=== PATIENT | male | born 1965 | race Caucasian/White ===

== ENCOUNTER 2017-03-26 14:11 | Observation (INO) | payer OTHER ==
[2017-03-26] VITALS (38 sets, daily range): BP systolic 171; BP diastolic 110; PULSE 93; TEMP 97.1; O2SAT 91–98
[~2017-03-26] VITALS: Ht 193 cm; Wt 95.8 kg
[~2017-03-26 14:11] MED LIST: AMITRIPTYLINE H25 M1 PO; BLOOD PRESSURE MED; CELEXA 20MG20 MG/TAB PO; DILANTIN 100MG100 MG PO; FOLIC ACID 11 MG/TA1 PO; LIBRIUM 25M25 MG/CAP PO; LIBRIUM 5MG5 MG/CAP PO; NKDA; NO HOME MEDICATIONS; NORCO 325 MG-51 TAB PO; NORVASC 10MG10 MG PO; PROZAC40 MG PO; TENORMIN 5050 MG/TAB PO; THIAMINE 1100 MG/TAB PO; TOPROL XL 50MG50 MG PO; VALIUM 5MG T5 MG/TAB PO
[2017-03-26] MEDS ORDERED: VALIUM 5MG T5 MG/TAB PO (14:36)
[2017-03-26] MEDS ORDERED: LITHIUM CA150 MG/CAP PO (14:36)
[2017-03-26 15:25] LABS: BASO % 0.9 % (0.0-2.0); EOS # 0.1 (0.0-0.7); EOS % 1.8 % (0-4.0); GRAN # 2.2 (1.4-6.5); HEMATOCRIT 48.8 % (42.0-52.0); HEMOGLOBIN 17.7 g/dl (13.5-18.0); LYMPH # 1.4 (1.2-3.4); LYMPH % 32.2 % (20.0-51.0); MEAN CELL VOLUME 90 fl (80.0-100.0); MEAN CORPUSCULAR HEMOGLOBIN 33 pg (27.0-31.0); MEAN CORPUSCULAR HGB CONC 36 g/dl (33.0-37.0); MEAN PLATELET VOLUME 10.1 fl (7.4-10.4); MONO # 0.7 (0.1-0.6); MONO % 14.9 % (1.7-9.3); PLATELET COUNT 101 K/mm3 (130-400); RED BLOOD COUNT 5.44 M/mm3 (4.20-5.60); REDCELL DISTRIBUTION WIDTH-CV 13.1 % (11.5-14.5); WHITE BLOOD COUNT 4.4 K/mm3 (4.8-10.8)
[2017-03-26 15:34] LABS: ACETAMINOPHEN < 10 ug/mL (10-30); ADJUSTED CALCIUM 8.4 mg/dL (8.4-10.2); ALANINE AMINOTRANSFERASE 137 U/L (21-72); ALBUMIN 5.1 gm/dL (3.5-5.0); ALKALINE PHOSPHATASE 101 U/L (50-136); ANION GAP 20 mmol/L (7-16); BILIRUBIN,TOTAL 1.5 mg/dL (0.0-1.0); BLOOD UREA NITROGEN 6 mg/dL (9-20); CALCIUM 9.3 mg/dL (8.4-10.2); CARBON DIOXIDE 23 mmol/L (22-30); CHLORIDE 101 mmol/L (98-107); CREATININE, serum 0.97 mg/dL (0.66-1.25); GLUCOSE 98 mg/dL (74-106); POTASSIUM 3.6 mmol/L (3.4-5.0); SALICYLATE < 1.0 mg/dL; SODIUM 144 mmol/L (137-145); TOTAL PROTEIN 9.4 gm/dL (6.4-8.2)
[2017-03-26 15:43] LABS: AMPHETAMINE URINE NEGATIVE; BARBITURATES URINE NEGATIVE; BENZODIAZEPINES URINE POSITIVE; BUPRENORPHINE URINE NEGATIVE; METHADONE URINE NEGATIVE; OPIATES URINE NEGATIVE; OXYCODONE URINE NEGATIVE; PHENCYCLIDINE URINE NEGATIVE; PROPOXYPHENE URINE NEGATIVE; THC CANNABINOIDS URINE NEGATIVE
[2017-03-26 16:55] LABS: LITHIUM < 0.2 mmol/L (0.6-1.2)
[2017-03-26 20:51] LABS: MAGNESIUM 2.3 mg/dL (1.6-2.3)
[2017-03-27] VITALS (608 sets, daily range): BP systolic 152–180; BP diastolic 104–120; PULSE 74–92; TEMP 96.9–98; O2SAT 88–99
[2017-03-28] VITALS (688 sets, daily range): BP systolic 159–1257; BP diastolic 99–117; PULSE 65–89; TEMP 97–98.1; O2SAT 67–98
[2017-03-28 05:56] LABS: HEMATOCRIT 39.3 % (42.0-52.0); MEAN CELL VOLUME 91 fl (80.0-100.0); MEAN CORPUSCULAR HEMOGLOBIN 33 pg (27.0-31.0); MEAN CORPUSCULAR HGB CONC 36 g/dl (33.0-37.0); PLATELET COUNT 56 K/mm3 (130-400); RED BLOOD COUNT 4.31 M/mm3 (4.20-5.60); REDCELL DISTRIBUTION WIDTH-CV 12.8 % (11.5-14.5)
[2017-03-28 05:59] LABS: HEMOGLOBIN 14.1 g/dl (13.5-18.0)
[2017-03-28 06:11] LABS: ADJUSTED CALCIUM 9.2 mg/dL (8.4-10.2); ALBUMIN 3.3 gm/dL (3.5-5.0); BILIRUBIN,TOTAL 1.2 mg/dL (0.0-1.0); CALCIUM 8.6 mg/dL (8.4-10.2); CREATININE, serum 0.86 mg/dL (0.66-1.25); POTASSIUM 3.3 mmol/L (3.4-5.0); TOTAL PROTEIN 6.3 gm/dL (6.4-8.2)
[2017-03-29] VITALS (7 sets, daily range): BP systolic 121–189; BP diastolic 78–139; PULSE 83–111; TEMP 97–98.7
[2017-03-29 06:19] LABS: ADJUSTED CALCIUM 9.4 mg/dL (8.4-10.2); ALBUMIN 3.5 gm/dL (3.5-5.0); BILIRUBIN,TOTAL 0.9 mg/dL (0.0-1.0); CREATININE, serum 0.73 mg/dL (0.66-1.25); POTASSIUM 3.2 mmol/L (3.4-5.0); TOTAL PROTEIN 6.7 gm/dL (6.4-8.2)
[2017-03-30] VITALS: BP 180/113; PULSE 86; TEMP 98
[2017-03-30 04:00] VITALS: BP 153/111; PULSE 89; TEMP 98.4
[2017-03-30 05:25] LABS: BASO % 0.7 % (0.0-2.0); EOS # 0.1 (0.0-0.7); GRAN # 2.6 (1.4-6.5); GRAN % 59.2 % (42.2-75.2); HEMOGLOBIN 15.4 g/dl (13.5-18.0); LYMPH % 23.3 % (20.0-51.0); MEAN CELL VOLUME 91 fl (80.0-100.0); MEAN CORPUSCULAR HEMOGLOBIN 33 pg (27.0-31.0); MEAN CORPUSCULAR HGB CONC 36 g/dl (33.0-37.0); MEAN PLATELET VOLUME 10.3 fl (7.4-10.4); MONO # 0.6 (0.1-0.6); MONO % 13.7 % (1.7-9.3); PLATELET COUNT 72 K/mm3 (130-400); RED BLOOD COUNT 4.72 M/mm3 (4.20-5.60); REDCELL DISTRIBUTION WIDTH-CV 13.1 % (11.5-14.5); WHITE BLOOD COUNT 4.5 K/mm3 (4.8-10.8)
[2017-03-30 05:39] LABS: CALCIUM 8.6 mg/dL (8.4-10.2); CREATININE, serum 0.71 mg/dL (0.66-1.25); POTASSIUM 3.2 mmol/L (3.4-5.0)
[2017-03-30 06:30] VITALS: BP 150/105
[2017-03-30 16:00] VITALS: BP 152/108; PULSE 89; TEMP 97.9
[2017-03-30 20:00] VITALS: BP 150/105; PULSE 88; TEMP 98.4
[2017-03-31] VITALS: BP 150/90; PULSE 82; TEMP 97.7
[2017-03-31 04:00] VITALS: BP 158/109; PULSE 88; TEMP 98.1
[2017-03-31 05:58] LABS: BASO % 0.8 % (0.0-2.0); EOS # 0.1 (0.0-0.7); EOS % 2.8 % (0-4.0); GRAN # 2.7 (1.4-6.5); GRAN % 53.5 % (42.2-75.2); HEMATOCRIT 43.3 % (42.0-52.0); HEMOGLOBIN 15.4 g/dl (13.5-18.0); LYMPH # 1.3 (1.2-3.4); LYMPH % 25.8 % (20.0-51.0); MEAN CELL VOLUME 92 fl (80.0-100.0); MEAN CORPUSCULAR HEMOGLOBIN 33 pg (27.0-31.0); MEAN CORPUSCULAR HGB CONC 36 g/dl (33.0-37.0); MEAN PLATELET VOLUME 11.2 fl (7.4-10.4); MONO # 0.8 (0.1-0.6); MONO % 15.9 % (1.7-9.3); PLATELET COUNT 90 K/mm3 (130-400); RED BLOOD COUNT 4.69 M/mm3 (4.20-5.60); REDCELL DISTRIBUTION WIDTH-CV 13.4 % (11.5-14.5)
[2017-03-31 07:12] LABS: CALCIUM 8.9 mg/dL (8.4-10.2); CREATININE, serum 0.8 mg/dL (0.66-1.25); POTASSIUM 3.4 mmol/L (3.4-5.0)
[2017-03-31 08:00] VITALS: BP 163/101; PULSE 85; TEMP 97
[2017-03-31] MEDS ORDERED: NEURONTIN400 MG/CAP PO (13:27)
[2017-03-31] MEDS ORDERED: LOPRESSOR 550 MG/TAB PO (13:27)
[2017-03-31] MEDS ORDERED: MULTIPLE VITAMI1 CAP PO (14:48)
[2017-03-31] MEDS ORDERED: THIAMINE 1100 MG/TAB PO (14:48)
== END 2017-03-31 13:55 | disposition home or self-care (01) ==
LOC: COL.ER 14:11 → ICU 20:49
PROVIDERS: Emergency Medicine; Family Medicine
DX: F10.239 Alcohol dependence with withdrawal, unspecified (principal); F10.229 Alcohol dependence with intoxication, unspecified; F19.129 Other psychoactive substance abuse with intoxication, unspecified; Y90.8 Blood alcohol level of 240 mg/100 ml or more; F17.210 Nicotine dependence, cigarettes, uncomplicated; R45.851 Suicidal ideations; R45.850 Homicidal ideations; F31.9 Bipolar disorder, unspecified; I10 Essential (primary) hypertension; B19.20 Unspecified viral hepatitis C without hepatic coma; D69.6 Thrombocytopenia, unspecified; R74.0 Nonspecific elevation of levels of transaminase and lactic acid dehydrogenase [LDH]; Z91.14 Patient's other noncompliance with medication regimen; R00.0 Tachycardia, unspecified
CPT/HCPCS: 90791-AI; 99222-AI; 99232-AI; 99233-AI; 99239; G0378; J0360; J1652; J2060; J2405; J3411; J7030

== ENCOUNTER 2017-06-14 14:06 | Emergency (ER) | payer SELFPAY ==
[~2017-06-14 14:06] MED LIST changes: +LITHIUM CA150 MG/CAP PO; +LOPRESSOR 550 MG/TAB PO; +MULTIPLE VITAMI1 CAP PO; +NEURONTIN400 MG/CAP PO
[2017-06-14 14:18] VITALS: BP 201/113; PULSE 141
== END 2017-06-14 14:52 | disposition left against medical advice (07) ==
LOC: COL.ER 14:06
DX: F99 Mental disorder, not otherwise specified (principal); Z53.21 Procedure and treatment not carried out due to patient leaving prior to being seen by health care provider

== ENCOUNTER 2017-06-16 03:57 | Inpatient (IN) | payer OTHER ==
[~2017-06-16] VITALS: Ht 193 cm; Wt 92.6 kg
[2017-06-16 04:31] LABS: BASO % 0.3 % (0.0-2.0); GRAN # 7.9 (1.4-6.5); GRAN % 85.2 % (42.2-75.2); HEMATOCRIT 50.5 % (42.0-52.0); LYMPH # 0.7 (1.2-3.4); LYMPH % 7.4 % (20.0-51.0); MEAN CELL VOLUME 90 fl (80.0-100.0); MEAN CORPUSCULAR HEMOGLOBIN 33 pg (27.0-31.0); MEAN CORPUSCULAR HGB CONC 36 g/dl (33.0-37.0); MEAN PLATELET VOLUME 9.6 fl (7.4-10.4); MONO # 0.6 (0.1-0.6); MONO % 6.7 % (1.7-9.3); PLATELET COUNT 138 K/mm3 (130-400); RED BLOOD COUNT 5.61 M/mm3 (4.20-5.60); REDCELL DISTRIBUTION WIDTH-CV 12.8 % (11.5-14.5); WHITE BLOOD COUNT 9.2 K/mm3 (4.8-10.8)
[2017-06-16 04:34] LABS: HEMOGLOBIN 18.3 g/dl (13.5-18.0)
[2017-06-16 04:38] LABS: PROTHROMBIN TIME 11.1 SECONDS (9.7-12.8)
[2017-06-16 04:42] LABS: ADJUSTED CALCIUM 8.7 mg/dL (8.4-10.2); ALBUMIN 4.8 gm/dL (3.5-5.0); BILIRUBIN,TOTAL 1.2 mg/dL (0.0-1.0); CALCIUM 9.3 mg/dL (8.4-10.2); CREATININE, serum 1.03 mg/dL (0.66-1.25); TOTAL PROTEIN 8.7 gm/dL (6.4-8.2)
[2017-06-16 05:02] LABS: ALLEN TEST YES; ALLENS TEST RESULT PASS; ARTERIAL BLD GAS O2 SATURATION 96.3 % (92-100); ARTERIAL BLD GAS TCO2 CT 19.5; ARTERIAL BLOOD GAS HCO3 18.7 meq/L (22-26); ARTERIAL BLOOD GAS PO2 82.5 mmHg (80-100); ARTERIAL BLOOD GAS PO2T 82.5 (80-100); ATS? YES; OXYHEMOGLOBIN 95.4 %
[2017-06-16 07:56] LABS: CALCIUM 9.3 mg/dL (8.4-10.2); CREATININE, serum 1.02 mg/dL (0.66-1.25); POTASSIUM 3.1 mmol/L (3.4-5.0)
[2017-06-16 17:03] LABS: PH 9 (5-8); SQUAMOUS EPITHELIAL 0-2 /hpf; URINE APPEARANCE Clear; URINE BACTERIA None Seen /hpf; URINE BILIRUBIN Negative (NEGATIVE); URINE BLOOD Negative (NEGATIVE); URINE COLOR Yellow; URINE GLUCOSE Negative (NEGATIVE); URINE KETONE Trace (NEGATIVE); URINE RBC 0-2 /hpf; URINE UROBILINOGEN Negative (NEGATIVE); URINE WBC 0-2 /hpf
[2017-06-16 17:16] LABS: AMPHETAMINE URINE NEGATIVE; BARBITURATES URINE POSITIVE; BENZODIAZEPINES URINE POSITIVE; BUPRENORPHINE URINE NEGATIVE; METHADONE URINE NEGATIVE; OPIATES URINE NEGATIVE; OXYCODONE URINE NEGATIVE; PHENCYCLIDINE URINE NEGATIVE; PROPOXYPHENE URINE NEGATIVE; THC CANNABINOIDS URINE NEGATIVE
[2017-06-16 17:17] LABS: CALCIUM 8.8 mg/dL (8.4-10.2); CREATININE, serum 1.03 mg/dL (0.66-1.25); POTASSIUM 3.6 mmol/L (3.4-5.0)
[2017-06-16 17:59] VITALS: BP 140/101; PULSE 101; TEMP 97.8
[2017-06-16 18:22] VITALS: BP 140/110; PULSE 110; TEMP 98.1
[2017-06-16 19:20] VITALS: BP 146/90; PULSE 101; TEMP 98.5
[2017-06-16 22:40] VITALS: BP 154/96; PULSE 111; TEMP 98.7
[2017-06-17] VITALS (10 sets, daily range): BP systolic 149–178; BP diastolic 94–115; PULSE 90–104; TEMP 97.9–9834
[2017-06-17 07:36] LABS: BASO % 0.5 % (0.0-2.0); EOS % 0.2 % (0-4.0); GRAN # 4.3 (1.4-6.5); GRAN % 64.5 % (42.2-75.2); HEMATOCRIT 47.9 % (42.0-52.0); HEMOGLOBIN 16.8 g/dl (13.5-18.0); LYMPH # 1.5 (1.2-3.4); LYMPH % 22.4 % (20.0-51.0); MEAN CELL VOLUME 92 fl (80.0-100.0); MEAN CORPUSCULAR HEMOGLOBIN 32 pg (27.0-31.0); MEAN CORPUSCULAR HGB CONC 35 g/dl (33.0-37.0); MEAN PLATELET VOLUME 10.3 fl (7.4-10.4); MONO # 0.8 (0.1-0.6); MONO % 12.1 % (1.7-9.3); PLATELET COUNT 86 K/mm3 (130-400); RED BLOOD COUNT 5.19 M/mm3 (4.20-5.60); REDCELL DISTRIBUTION WIDTH-CV 12.7 % (11.5-14.5); WHITE BLOOD COUNT 6.6 K/mm3 (4.8-10.8)
[2017-06-17 07:49] LABS: ADJUSTED CALCIUM 9.1 mg/dL (8.4-10.2); ALBUMIN 3.8 gm/dL (3.5-5.0); BILIRUBIN,TOTAL 2.2 mg/dL (0.0-1.0); CALCIUM 8.9 mg/dL (8.4-10.2); MAGNESIUM 2.1 mg/dL (1.6-2.3); POTASSIUM 3.2 mmol/L (3.4-5.0); TOTAL PROTEIN 7.3 gm/dL (6.4-8.2)
[2017-06-18 00:01] VITALS: BP 171/117; PULSE 94; TEMP 98.9
[2017-06-18 02:36] VITALS: BP 176/112; PULSE 85; TEMP 97.3
[2017-06-18 04:22] VITALS: BP 165/114; PULSE 89; TEMP 98.1
[2017-06-18 07:22] LABS: ADJUSTED CALCIUM 9.2 mg/dL (8.4-10.2); ALBUMIN 3.5 gm/dL (3.5-5.0); BILIRUBIN,TOTAL 1.7 mg/dL (0.0-1.0); CALCIUM 8.8 mg/dL (8.4-10.2); CREATININE, serum 0.91 mg/dL (0.66-1.25); POTASSIUM 3.4 mmol/L (3.4-5.0); TOTAL PROTEIN 6.9 gm/dL (6.4-8.2)
[2017-06-18 07:53] LABS: HEMATOCRIT 45.4 % (42.0-52.0); HEMOGLOBIN 16.3 g/dl (13.5-18.0)
[2017-06-18 08:06] VITALS: BP 151/93; PULSE 88; TEMP 98.2
[2017-06-18 12:09] VITALS: BP 167/118; PULSE 90; TEMP 97.8
== END 2017-06-18 13:35 | disposition left against medical advice (07) | DRG 378 ==
LOC: COL.ER 03:57 → MEDICAL 10:00 → EDBEDREQ 17:17 → MEDICAL 06-18 13:35
PROVIDERS: Emergency Medicine; Internal Medicine; Internal Medicine Gastroenterology
DX: K29.21 Alcoholic gastritis with bleeding (principal); F10.239 Alcohol dependence with withdrawal, unspecified; K20.9 Esophagitis, unspecified; K21.9 Gastro-esophageal reflux disease without esophagitis; E87.6 Hypokalemia; I10 Essential (primary) hypertension; E88.89 Other specified metabolic disorders; F31.9 Bipolar disorder, unspecified; B19.20 Unspecified viral hepatitis C without hepatic coma
CPT/HCPCS: 90791-AI; 99223-AI; 99233-AI; 99238; C9113; J2060; J2405; J2550; J3360; J3411; J3480; J7030; J7042; Q9967

== ENCOUNTER 2017-06-18 22:52 | Inpatient (IN) | payer OTHER ==
[~2017-06-18] VITALS: Ht 193 cm; Wt 90.7 kg
[2017-06-18 23:34] LABS: BASO % 0.3 % (0.0-2.0); EOS % 0.5 % (0-4.0); GRAN # 3.6 (1.4-6.5); GRAN % 60.2 % (42.2-75.2); HEMATOCRIT 47.1 % (42.0-52.0); LYMPH # 1.6 (1.2-3.4); MEAN CELL VOLUME 90 fl (80.0-100.0); MEAN CORPUSCULAR HEMOGLOBIN 33 pg (27.0-31.0); MEAN CORPUSCULAR HGB CONC 36 g/dl (33.0-37.0); MEAN PLATELET VOLUME 10.5 fl (7.4-10.4); MONO # 0.7 (0.1-0.6); MONO % 11.5 % (1.7-9.3); PLATELET COUNT 82 K/mm3 (130-400); RED BLOOD COUNT 5.22 M/mm3 (4.20-5.60); REDCELL DISTRIBUTION WIDTH-CV 12.3 % (11.5-14.5); WHITE BLOOD COUNT 5.9 K/mm3 (4.8-10.8)
[2017-06-18 23:47] LABS: ADJUSTED CALCIUM 9.2 mg/dL (8.4-10.2); ALANINE AMINOTRANSFERASE 114 U/L (21-72); ALBUMIN 4.4 gm/dL (3.5-5.0); ALKALINE PHOSPHATASE 73 U/L (50-136); ANION GAP 14 mmol/L (7-16); BILIRUBIN,TOTAL 1.2 mg/dL (0.0-1.0); BLOOD UREA NITROGEN 4 mg/dL (9-20); CALCIUM 9.5 mg/dL (8.4-10.2); CARBON DIOXIDE 17 mmol/L (22-30); CHLORIDE 110 mmol/L (98-107); CREATININE, serum 0.81 mg/dL (0.66-1.25); GLUCOSE 99 mg/dL (74-106); POTASSIUM 3.1 mmol/L (3.4-5.0); SODIUM 141 mmol/L (137-145); TOTAL PROTEIN 8.1 gm/dL (6.4-8.2)
[2017-06-18 23:49] LABS: ACETAMINOPHEN < 10 ug/mL (10-30); SALICYLATE < 1.0 mg/dL
[2017-06-19] VITALS (20 sets, daily range): BP systolic 127–168; BP diastolic 82–114; PULSE 76–102; TEMP 97.4–98.3; O2SAT 95–98
[2017-06-19 03:12] LABS: PH 5 (5-8); SQUAMOUS EPITHELIAL None Seen /hpf; URINE APPEARANCE Clear; URINE BACTERIA None Seen /hpf; URINE BILIRUBIN Negative (NEGATIVE); URINE BLOOD Negative (NEGATIVE); URINE COLOR Yellow; URINE GLUCOSE Negative (NEGATIVE); URINE KETONE Negative (NEGATIVE); URINE RBC 0-2 /hpf; URINE UROBILINOGEN Negative (NEGATIVE); URINE WBC 0-2 /hpf
[2017-06-19 03:19] LABS: MAGNESIUM 2.1 mg/dL (1.6-2.3)
[2017-06-19 03:22] LABS: AMPHETAMINE URINE NEGATIVE; BARBITURATES URINE NEGATIVE; BENZODIAZEPINES URINE POSITIVE; BUPRENORPHINE URINE NEGATIVE; METHADONE URINE NEGATIVE; OPIATES URINE NEGATIVE; OXYCODONE URINE NEGATIVE; PHENCYCLIDINE URINE NEGATIVE; PROPOXYPHENE URINE NEGATIVE; THC CANNABINOIDS URINE NEGATIVE
[2017-06-19 03:45] LABS: TROPONIN-I < 0.012 ng/mL (0.000-0.034)
[2017-06-19 06:11] LABS: ANION GAP 12 mmol/L (7-16); BLOOD UREA NITROGEN 5 mg/dL (9-20); CALCIUM 8.7 mg/dL (8.4-10.2); CARBON DIOXIDE 20 mmol/L (22-30); CHLORIDE 109 mmol/L (98-107); CREATININE, serum 0.82 mg/dL (0.66-1.25); GLUCOSE 80 mg/dL (74-106); POTASSIUM 3.4 mmol/L (3.4-5.0); SODIUM 141 mmol/L (137-145)
[2017-06-20 00:52] VITALS: BP 159/107; PULSE 91; TEMP 98
[2017-06-20 03:46] VITALS: BP 167/87; PULSE 83; TEMP 98.3
[2017-06-20 06:37] VITALS: BP 162/92; PULSE 84; TEMP 98.2
[2017-06-20 08:02] VITALS: BP 153/113; PULSE 85; TEMP 98.7
[2017-06-20] MEDS ORDERED: VALIUM 5MG T5 MG/TAB PO (09:56)
[2017-06-20] MEDS ORDERED: PRILOSEC 20MG20 MG PO (09:56)
[2017-06-20] MEDS ORDERED: PHENERGAN 25 TA25 MG PO (09:56)
== END 2017-06-20 13:45 | disposition home or self-care (01) | DRG 897 ==
LOC: COL.ER 22:52 → ICU 06-19 00:36 → MEDICAL 06-19 00:36
PROVIDERS: Emergency Medicine; Internal Medicine
DX: F10.232 Alcohol dependence with withdrawal with perceptual disturbance (principal); E87.2 Acidosis; Z59.0 Homelessness; E87.6 Hypokalemia; F17.210 Nicotine dependence, cigarettes, uncomplicated; K20.9 Esophagitis, unspecified; Y90.3 Blood alcohol level of 60-79 mg/100 ml
CPT/HCPCS: 99223-AI; 99239; J1630; J2060; J2704; J3411; J3475; J7030

== ENCOUNTER 2017-06-25 13:45 | Emergency (ER) | payer OTHER ==
[~2017-06-25] VITALS: Ht 190.5 cm; Wt 102.3 kg
[~2017-06-25 13:45] MED LIST changes: +PHENERGAN 25 TA25 MG PO; +PRILOSEC 20MG20 MG PO
[2017-06-25 13:48] VITALS: TEMP 97.8
[2017-06-25 14:22] LABS: BASO # 0.1 (0.0-0.2); EOS % 0.8 % (0-4.0); GRAN # 2.5 (1.4-6.5); GRAN % 51.2 % (42.2-75.2); HEMATOCRIT 46.8 % (42.0-52.0); LYMPH # 1.4 (1.2-3.4); LYMPH % 29.4 % (20.0-51.0); MEAN CELL VOLUME 90 fl (80.0-100.0); MEAN CORPUSCULAR HEMOGLOBIN 33 pg (27.0-31.0); MEAN CORPUSCULAR HGB CONC 36 g/dl (33.0-37.0); MEAN PLATELET VOLUME 9.7 fl (7.4-10.4); MONO # 0.8 (0.1-0.6); PLATELET COUNT 253 K/mm3 (130-400); RED BLOOD COUNT 5.18 M/mm3 (4.20-5.60); REDCELL DISTRIBUTION WIDTH-CV 13.4 % (11.5-14.5); WHITE BLOOD COUNT 4.9 K/mm3 (4.8-10.8)
[2017-06-25 14:27] LABS: ADJUSTED CALCIUM 8.5 mg/dL (8.4-10.2); ALBUMIN 4.6 gm/dL (3.5-5.0); BILIRUBIN,TOTAL 0.8 mg/dL (0.0-1.0); CREATININE, serum 1.03 mg/dL (0.66-1.25); POTASSIUM 3.6 mmol/L (3.4-5.0); TOTAL PROTEIN 8.1 gm/dL (6.4-8.2)
[2017-06-25] MEDS ORDERED: CARDIZEM SR 60M60 MG PO (16:58)
[2017-06-25] MEDS ORDERED: ASPIRIN 81M81 MG/TA2 PO (17:04)
[2017-06-25 17:07] VITALS: BP 182/116; PULSE 118
== END 2017-06-25 17:07 | disposition home or self-care (01) ==
LOC: COL.ER 13:45
PROVIDERS: Emergency Medicine
DX: S09.90XA Unspecified injury of head, initial encounter (principal); S20.219A Contusion of unspecified front wall of thorax, initial encounter; F10.129 Alcohol abuse with intoxication, unspecified; Y90.8 Blood alcohol level of 240 mg/100 ml or more; V48.5XXA Car driver injured in noncollision transport accident in traffic accident, initial encounter
CPT/HCPCS: J0153; J1170; J1885; J7030; Q9967

== ENCOUNTER 2018-05-31 15:40 | Inpatient (IN) | payer SELFPAY ==
[2018-05-31] VITALS (179 sets, daily range): BP systolic 158; BP diastolic 114; PULSE 96; TEMP 97.3; O2SAT 90–100
[~2018-05-31] VITALS: Ht 193 cm; Wt 105.4 kg
[~2018-05-31 15:40] MED LIST changes: +ABILIFY 15MG TA15 MG PO; +ARTIFICIAL TEAR15 M7 OP; +ASPIRIN 81M81 MG/TA2 PO; +CARDIZEM SR 60M60 MG PO; +CARDIZEM120 MG PO; +COGENTIN 2MG2 MG/TA1 PO; +DESYREL 50MG50 MG PO; +FLOMAX 0.40.4 MG/CAP PO; +LITHIUM 30300 MG/CAP; +RISPERDAL 1M1 MG/TAB PO; +WELLBUTRIN 75MG75 MG PO; +ZYRTEC 10MG10 MG PO
[2018-05-31 16:04] LABS: BASO % 0.5 % (0.0-2.0); EOS # 0.1 (0.0-0.7); EOS % 0.8 % (0-4.0); GRAN # 2.7 (1.4-6.5); GRAN % 41.7 % (42.2-75.2); HEMOGLOBIN 16.6 g/dl (13.5-18.0); LYMPH # 2.9 (1.2-3.4); LYMPH % 45.2 % (20.0-51.0); MEAN CELL VOLUME 86 fl (80.0-100.0); MEAN CORPUSCULAR HEMOGLOBIN 32 pg (27.0-31.0); MEAN CORPUSCULAR HGB CONC 37 g/dl (33.0-37.0); MEAN PLATELET VOLUME 9.6 fl (7.4-10.4); MONO # 0.7 (0.1-0.6); MONO % 10.9 % (1.7-9.3); PLATELET COUNT 192 K/mm3 (130-400); RED BLOOD COUNT 5.21 M/mm3 (4.20-5.60); REDCELL DISTRIBUTION WIDTH-CV 12.7 % (11.5-14.5)
[2018-05-31] MEDS ORDERED: ADVIL200 MG PO (16:07)
[2018-05-31 16:23] LABS: ALANINE AMINOTRANSFERASE 105 U/L (21-72); ALBUMIN 4.1 gm/dL (3.5-5.0); ALCOHOL(ethanol),MEDICAL 258 mg/dL; ALKALINE PHOSPHATASE 78 U/L (50-136); ANION GAP 15 mmol/L (7-16); AST,SGOT 105 U/L (15-37); BILIRUBIN,TOTAL 0.6 mg/dL (0.0-1.0); BLOOD UREA NITROGEN 5 mg/dL (9-20); CALCIUM 8.4 mg/dL (8.4-10.2); CARBON DIOXIDE 19 mmol/L (22-30); CHLORIDE 102 mmol/L (98-107); CREATININE, serum 0.87 mg/dL (0.66-1.25); GLUCOSE 94 mg/dL (74-106); POTASSIUM 4.2 mmol/L (3.4-5.0); SODIUM 136 mmol/L (137-145); TOTAL PROTEIN 7.7 gm/dL (6.4-8.2)
[2018-05-31 16:26] LABS: PROTHROMBIN TIME 11.2 SECONDS (9.7-12.8)
[2018-05-31 16:28] LABS: PARTIAL THROMBOPLASTIN TIME 40.9 SECONDS (26.0-37.0)
[2018-05-31 16:33] LABS: TROPONIN-I < 0.012 ng/mL (0.000-0.034)
[2018-05-31 17:10] LABS: COLLECTION METHOD CLEAN CATCH
[2018-05-31 17:22] LABS: HYALINE CAST >12 /lpf; MUCOUS Present /lpf; PH 5 (5-8); SQUAMOUS EPITHELIAL 0-2 /hpf; URINE APPEARANCE Clear; URINE BACTERIA None Seen /hpf; URINE BILIRUBIN Negative (NEGATIVE); URINE BLOOD Negative (NEGATIVE); URINE COLOR Yellow; URINE GLUCOSE Negative (NEGATIVE); URINE KETONE Trace (NEGATIVE); URINE LEUKOCYTE ESTERASE Negative (NEGATIVE); URINE NITRATE Negative (NEGATIVE); URINE PROTEIN(semi-quant) Negative (NEGATIVE); URINE RBC 0-2 /hpf; URINE UROBILINOGEN Negative (NEGATIVE)
[2018-06-01] VITALS (355 sets, daily range): BP systolic 125–142; BP diastolic 84–102; PULSE 74–92; TEMP 97.3–98.2; O2SAT 91–100
[2018-06-01 01:29] LABS: TRICYCLIC ANTIDEPRESS URINE NEGATIVE
[2018-06-01 05:21] LABS: BASO % 0.4 % (0.0-2.0); EOS % 0.7 % (0-4.0); GRAN # 2.7 (1.4-6.5); GRAN % 50.7 % (42.2-75.2); HEMATOCRIT 40.8 % (42.0-52.0); LYMPH # 2.1 (1.2-3.4); LYMPH % 38.4 % (20.0-51.0); MEAN CELL VOLUME 88 fl (80.0-100.0); MEAN CORPUSCULAR HEMOGLOBIN 32 pg (27.0-31.0); MEAN CORPUSCULAR HGB CONC 37 g/dl (33.0-37.0); MEAN PLATELET VOLUME 9.8 fl (7.4-10.4); MONO # 0.5 (0.1-0.6); MONO % 9.2 % (1.7-9.3); PLATELET COUNT 142 K/mm3 (130-400); RED BLOOD COUNT 4.65 M/mm3 (4.20-5.60)
[2018-06-01 05:31] LABS: CALCIUM 8.3 mg/dL (8.4-10.2); CHOLESTEROL RISK RATIO 1.9; CREATININE, serum 0.74 mg/dL (0.66-1.25); MAGNESIUM 1.7 mg/dL (1.6-2.3); POTASSIUM 4.9 mmol/L (3.4-5.0)
[2018-06-02] VITALS (12 sets, daily range): BP systolic 125–156; BP diastolic 67–111; PULSE 68–104; TEMP 97.5–98.3
[2018-06-02] MEDS ORDERED: NEURONTIN300 MG/CAP PO (15:02)
== END 2018-06-02 16:47 | disposition home or self-care (01) | DRG 313 ==
LOC: COL.ER 15:40 → ICU 18:54 → MEDICAL 06-01 10:16
PROVIDERS: Family Medicine; Hospitalist; Nurse Practitioner
DX: R07.9 Chest pain, unspecified (principal); F10.20 Alcohol dependence, uncomplicated; I10 Essential (primary) hypertension; Y90.8 Blood alcohol level of 240 mg/100 ml or more; F15.10 Other stimulant abuse, uncomplicated; F11.10 Opioid abuse, uncomplicated
CPT/HCPCS: 99238; A9502; G0378; J1650; J2060; J2270; J2405; J2785; J7120

== ENCOUNTER 2021-05-07 13:20 | Emergency (ER) | payer OTHER ==
[~2021-05-07] VITALS: Ht 193 cm; Wt 109.1 kg
[~2021-05-07 13:20] MED LIST changes: +ADVIL200 MG PO; +AMOXICILLIN 8751 TAB PO; +NEURONTIN300 MG/CAP PO; +VALIUM 10MG10 MG/TAB PO
[2021-05-07 13:28] VITALS: TEMP 98.6
[2021-05-07] MEDS ORDERED: NAPROSYN500 MG PO ×2 (14:25)
[2021-05-07] MEDS ORDERED: PERCOCET 325 MG1 TA2 PO (14:59)
[2021-05-07 15:25] VITALS: BP 164/99; PULSE 99
[2021-08-24] MEDS ORDERED: NORVASC 10MG10 MG PO (09:53)
[2021-08-24] MEDS ORDERED: PRINIVIL10 MG PO (09:53)
[2021-08-24] MEDS ORDERED: LEXAPRO 10MG10 MG PO (09:54)
== END 2021-05-07 15:30 | disposition home or self-care (01) ==
LOC: COL.ER 13:20
DX: S82.831A Other fracture of upper and lower end of right fibula, initial encounter for closed fracture (principal); F17.290 Nicotine dependence, other tobacco product, uncomplicated; W01.0XXA Fall on same level from slipping, tripping and stumbling without subsequent striking against object, initial encounter
CPT/HCPCS: J1885

== ENCOUNTER → 2021-08-24 | Outpatient (CLI) | payer OTHER ==
[~2021-08-24] VITALS: Ht 193 cm; Wt 108.5 kg
[2021-08-24] VITALS (10 sets, daily range): BP systolic 112–168; BP diastolic 79–100; PULSE 64–74; TEMP 97
[~2021-08-24] MED LIST changes: +LEXAPRO 10MG10 MG PO; +NAPROSYN500 MG PO; +PERCOCET 325 MG1 TA2 PO; +PRINIVIL10 MG PO
[2021-08-24 10:07] LABS: INR 1.1 (0.8-3.0); PROTHROMBIN TIME 12.1 SECONDS (9.7-12.8)
--- NOTE | 2021-08-24 10:35 | NUR ---
Pt to ct per ambulation, monitors applied. Pt in supine position on ct table.
--- NOTE | 2021-08-24 10:50 | NUR ---
Specimen obtained and placed in formalin by Dr Lujan. Specimen labeled.
--- NOTE | 2021-08-24 12:00 | NUR ---
Pt out to car per wheelchair. Pt up and into car without assistance. Denies pain. Pt has copy of discharge instructions. Pt verbalized understanding of instructions.
== END ==
LOC: COL.RAD 08-23 09:00
PROVIDERS: Internal Medicine Gastroenterology
DX: K74.60 Unspecified cirrhosis of liver (principal); D69.8 Other specified hemorrhagic conditions; R74.8 Abnormal levels of other serum enzymes; N28.1 Cyst of kidney, acquired; F10.20 Alcohol dependence, uncomplicated
CPT/HCPCS: 32108

== ENCOUNTER 2023-11-22 12:24 | Emergency (ER) | payer OTHER ==
[~2023-11-22] VITALS: Ht 193 cm; Wt 106.8 kg
[~2023-11-22 12:24] MED LIST changes: +ATARAX 25MG25 MG/TAB PO; +ATIVAN 1MG T1 MG/TAB PO; +CYMBALTA 60MG60 MG PO
[2023-11-22 12:30] VITALS: TEMP 97.7
[2023-11-22] MEDS ORDERED: NS 1,000 ML IV ONE (13:15)
[2023-11-22] MEDS ORDERED: Morphine 4 MG/ML VIAL IV ONE ×2 (13:30→17:00)
[2023-11-22 13:43] LABS: BASO # 0.1 K/mm3 (0.0-0.2); BASO % 1.3 % (0.0-2.0); EOS # 0.1 K/mm3 (0.0-0.7); EOS % 2.4 % (0.0-4.0); GRAN # 3.1 K/mm3 (1.4-6.5); GRAN % 57.3 % (42.2-75.2); HEMOGLOBIN 12.9 g/dl (13.5-18.0); LYMPH # 1.3 K/mm3 (1.2-3.4); LYMPH % 23.4 % (20.0-51.0); MEAN CELL VOLUME 98 fl (80.0-100.0); MEAN CORPUSCULAR HEMOGLOBIN 33 pg (27-31); MEAN CORPUSCULAR HGB CONC 34 g/dl (33.0-37.0); MEAN PLATELET VOLUME 9.2 fl (7.4-10.4); MONO # 0.8 K/mm3 (0.1-0.6); MONO % 14.7 % (1.7-9.3); PLATELET COUNT 278 K/mm3 (130-400); RED BLOOD COUNT 3.89 M/mm3 (4.20-5.60); REDCELL DISTRIBUTION WIDTH-CV 14.8 % (11.5-14.5)
[2023-11-22 13:53] LABS: INR 1.1 (0.8-3.0); PROTHROMBIN TIME 11.9 SECONDS (9.7-12.8)
[2023-11-22 14:09] LABS: ALBUMIN 3.5 gm/dL (3.5-5.0); BILIRUBIN,TOTAL 0.9 mg/dL (0.2-1.2); C-REACTIVE PROTEIN 0.29 mg/dL (0.00-0.50); CALCIUM 8.8 mg/dL (8.4-10.2); CREATININE, serum 0.89 mg/dL (0.72-1.25); POTASSIUM 3.9 mmol/L (3.5-4.5); TOTAL PROTEIN 7.1 gm/dL (6.2-8.1)
[2023-11-22] MEDS ORDERED: Iohexol 300 - 100 ML VIAL IV ONE (15:03)
[2023-11-22] MEDS ORDERED: NS 100 ML IV SCH (15:04)
[2023-11-22 15:05] LABS: COLLECTION METHOD CLEAN CATCH
[2023-11-22 15:33] LABS: URINE APPEARANCE Clear (CLEAR/HAZY); URINE BLOOD Negative (NEGATIVE); URINE COLOR Yellow (YELLOW); URINE GLUCOSE Negative (NEGATIVE); URINE KETONE Negative (NEGATIVE); URINE NITRATE Negative (NEGATIVE); URINE PROTEIN(semi-quant) Negative (BEGATIVE); URINE UROBILINOGEN 0.2 E.U/dL (0.2-1.0)
[2023-11-22 15:34] LABS: SQUAMOUS EPITHELIAL None Seen /hpf (0-10); URINE RBC None Seen /hpf (0-2)
[2023-11-22] MEDS ORDERED: NORCO 325 MG-51 TAB PO (16:44)
[2023-11-22] MEDS ORDERED: LIDODERM 5% PATC1 EA TP (16:44)
[2023-11-22] MEDS ORDERED: Ondansetron 4 MG/2 ML VIAL IV ONE (17:15)
[2023-11-22 17:35] VITALS: BP 145/97; PULSE 96
== END 2023-11-22 17:35 | disposition home or self-care (01) ==
LOC: COL.ER 12:24
PROVIDERS: Nurse Practitioner
DX: S22.41XA Multiple fractures of ribs, right side, initial encounter for closed fracture (principal); S27.1XXA Traumatic hemothorax, initial encounter; S30.1XXA Contusion of abdominal wall, initial encounter; W18.2XXA Fall in (into) shower or empty bathtub, initial encounter
CPT/HCPCS: A9284; J2270; J2405; J7030; Q9967